=== PATIENT | male | born 1945 | race Caucasian/White ===

== ENCOUNTER → 2024-04-12 | Day surgery (SDC) | payer MEDICARE, OTHER ==
[~2024-04-12] MED LIST: CITRUCEL479 GM PO; CLOBETASOL PROP15 GM TOP; FINASTERIDE5 MG PO; HYDROCORTISON28.4 G9 TOP; L-GLUTAMINE500 M1 PO; LEVOTHYROXINE75 MC1 PO; LIDOCAINE 2% VISCOUS 11 ML SYR ONE; LYCOPENE10 MG PO; MAGNESIUM100 MG PO; VITAMIN D310 MC1 PO
--- NOTE | 2024-04-12 09:46 | NUR ---
SAMUEL 0941: PT IS DC'D HOME AMBUALTORY.
== END ==
LOC: OPS 08:25 → DS 08:26 → OPS 08:26 → DS 09:00
PROVIDERS: ATTEND Urology
PROC: 0TJB8ZZ Inspection of Bladder, Via Natural or Artificial Opening Endoscopic (ICD-10-PCS; principal; 2024-04-12 09:00)
DX: N40.1 Benign prostatic hyperplasia with lower urinary tract symptoms (principal); N30.91 Cystitis, unspecified with hematuria; E03.9 Hypothyroidism, unspecified; N18.31 Chronic kidney disease, stage 3a; I50.9 Heart failure, unspecified
CPT/HCPCS: 52000; C1747; J3490